=== PATIENT | female | born 2000 ===

== ENCOUNTER 2022-05-10 09:45 | Outpatient (CLI) | payer OTHER | END 2022-05-10 12:51 | disposition home or self-care (01) | LOC: PRENATAL 09:45 | PROVIDERS: ATTEND Obstetrics & Gynecology Maternal & Fetal Medicine | DX: O35.9XX0 Maternal care for (suspected) fetal abnormality and damage, unspecified, not applicable or unspecified (principal); O35.3XX0 Maternal care for (suspected) damage to fetus from viral disease in mother, not applicable or unspecified; Z3A.26 26 weeks gestation of pregnancy ==

== ENCOUNTER 2022-08-16 19:17 | Inpatient (IN) | payer OTHER ==
[~2022-08-16] VITALS: Ht 165.1 cm; Wt 77.1 kg
[~2022-08-16 19:17] MED LIST: PRENATAL + DHA1 EAC1 PO
== END 2022-08-19 12:53 | disposition home or self-care (01) | DRG 807 ==
LOC: OB/GYN 19:17 → LDR 19:17 → OB/GYN 08-17 15:17
PROVIDERS: ADMIT Obstetrics & Gynecology; ATTEND Obstetrics & Gynecology
PROC: 3E033VJ Introduction of Other Hormone into Peripheral Vein, Percutaneous Approach (ICD-10-PCS; 2022-08-16)
PROC: 4A1HXCZ Monitoring of Products of Conception, Cardiac Rate, External Approach (ICD-10-PCS; 2022-08-16)
PROC: 10E0XZZ Delivery of Products of Conception, External Approach (ICD-10-PCS; principal; 2022-08-17)
PROC: 0KQM0ZZ Repair Perineum Muscle, Open Approach (ICD-10-PCS; 2022-08-17)
PROC: 0UQMXZZ Repair Vulva, External Approach (ICD-10-PCS; 2022-08-17)
PROC: 3E0P7VZ Introduction of Hormone into Female Reproductive, Via Natural or Artificial Opening (ICD-10-PCS; 2022-08-17)
DX: O70.1 Second degree perineal laceration during delivery (principal); Z37.0 Single live birth; O71.82 Other specified trauma to perineum and vulva; O99.824 Streptococcus B carrier state complicating childbirth; Z3A.39 39 weeks gestation of pregnancy; Z20.822 Contact with and (suspected) exposure to COVID-19